=== PATIENT | female | born 1970 | race Caucasian/White ===

== ENCOUNTER 2016-11-17 20:57 | Emergency (ER) | payer MEDICAID, OTHER ==
[2016-11-17 21:31] VITALS: BP 151/82
--- NOTE | 2016-11-17 21:59 | UC ---
Complaint Female HPI - HPI Summary HPI Summary: pt c/o of dysuria, low back pain and "tenderness down there" with vaginal odor and "white stuff" discharge - History Of Current Complaint Chief Complaint: UCGU Stated Complaint: PERSONAL Time Seen by Provider: 11/17/16 21:37 Hx Obtained From: Patient Hx Last Menstrual Period: Hyst. ?: No Onset/Duration: Gradual Onset, Lasting Weeks Timing: Constant Severity Initially: Mild Severity Currently: Moderate Character: Burning Aggravating Factor(s): Urination Associated Signs And Symptoms: Positive: Back Pain, Vaginal Discharge - white - Allergies/Home Medications Allergies/Adverse Reactions: Allergies Allergy/AdvReac Type Severity Reaction Status Date / Time Metformin and Related Allergy Intermediate diarrhea/weight Verified 11/17/16 21: 26 loss Amoxicillin [From Augmentin] Allergy Swelling Verified 11/17/16 21:26 Of Face,Lips,& Throat Clavulanic Acid Allergy Swelling Verified 11/17/16 21:26 [From Augmentin] Of Face,Lips,& Throat Morphine Allergy Vomiting, Verified 11/17/16 21:26 Dizziness, Tongue Burning Sensation TIDE Allergy Intermediate Hives Uncoded 11/17/16 21:26 tuna fish Allergy Intermediate Swelling, Uncoded 11/17/16 21:26 Difficulty Breathing med for RA, hydro... Allergy Swelling Uncoded 11/17/16 21:26 PMH/Surg Hx/FS Hx/Imm Hx Previously Healthy: No - see pmh Endocrine History Of: Reports: Diabetes, Dyslipidemia Denies: Thyroid Disease, Hyperthyroidism, Hypothyroidism Cardiovascular History Of: Reports: Hypertension Denies: Cardiac Disorders, Pacemaker/ICD, Myocardial Infarction, Congestive Heart Failure, Atrial Fibrillation, Deep Vein Thrombosis, Bleeding Disorders Respiratory History Of: Reports: Asthma - She has not used inhaler for "a while. " Denies: COPD, Bronchitis, Pneumonia, Pulmonary Embolism GI/ History Of: Reports: Kidney Stones - She states that she was told that she has a kidney stone. Denies: Gastroesophageal Reflux, Ulcer, Gastrointestinal Bleed, Gall Bladder Disease, Diverticulitis, Renal Disease, Urosepsis Neurological History Of: Denies: TIA, CVA, Dementia, Seizures, Migraine Psychological History Of: Denies: Anxiety, Depression, Bipolar Disorder, Schizophrenia, Post Traumatic Stress Disorder Cancer History Of: Denies: Lung Cancer, Colorectal Cancer, Breast Cancer, Prostate Cancer, Cervical Cancer Other History Of: Negative For: HIV, Hepatitis B, Hepatitis C, Anticoagulant Therapy - Surgical History Surgical History: Yes Surgery Procedure, Year, and Place: Cholecystectomy, 1994, [facility]. Hysterectomy, 02/23/13, [facility] - Family History Known Family History: Positive: None, Cardiac Disease, Hypertension - Social History Lives: With Family Alcohol Use: None Substance Use Type: None Smoking Status (MU): Never Smoked Tobacco - Immunization History Most Recent Influenza Vaccination: Not the Season Review of Systems Constitutional: Negative Skin: Negative Eyes: Negative ENT: Negative Respiratory: Negative Cardiovascular: Negative Gastrointestinal: Negative Genitourinary: Dysuria, Hematuria, Frequency, Urgency Motor: Negative Neurovascular: Negative Musculoskeletal: Negative Neurological: Negative Psychological: Negative All Other Systems Reviewed And Are Negative: Yes Physical Exam Triage Information Reviewed: Yes Appearance: Well-Appearing Vital Signs: Initial Vital Signs Temp 98.9 F 11/17/16 21:22 Pulse 100 11/17/16 21:22 Resp 18 11/17/16 21:22 BP 151/82 11/17/16 21:22 Pulse Ox 100 11/17/16 21:22 Vital Signs Reviewed: Yes Neck exam: Normal Respiratory Exam: Normal Cardiovascular Exam: Normal Abdominal Exam: Other Abdomen Description: Positive: CVA Tenderness (R), CVA Tenderness (L) - has history of small kidney stone, pcp is follwoing Musculoskeletal Exam: Normal Neurological Exam: Normal Psychological Exam: Normal Skin Exam: Normal Complaint Female Dx - Course Course Of Treatment: It has been recommended that you seek further evaluation, testing and treatment at the local emergency department. You have declined this recommendation and indicate that you will follow up with your PCP regarding your diabetes. Additionally, you have indicated taht you will follow the protocol as given by your diabetes provider to cover your BG levels as tested here today. - Differential Dx/Diagnosis Differential Diagnosis/HQI/PQRI: Urinary Tract Infection, Other - vaginal yeast , hyperglycemia , ketoacidosis, Provider Diagnoses: hyperglycemia. vaginal yeast. dysuria Discharge - Discharge Plan Condition: Stable Disposition: HOME Prescriptions: Fluconazole 100 MG TAB* [Diflucan 100 MG TAB*] 100 mg PO DAILY #7 tab Phenazopyridine TAB* [Pyridium TAB*] 100 mg PO TID #6 tab Patient Education Materials: Vulvovaginal Candidiasis (ED), Dysuria (ED), Diabetic Hyperglycemia (ED) Referrals: Susannah Kee MD [Primary Care Provider] - Additional Instructions: It has been recommended that you seek further evaluation, testing and treatment at the local emergency department. You have declined this recommendation and indicate that you will follow up with your PCP regarding your diabetes. Additionally, you have indicated that you will follow the protocol as given by your diabetes provider to cover your BG levels as tested here today at home. .
[2016-11-17] MEDS ORDERED: Phenazopyridine TAB* 100 MG PO ONE ×2 (22:08)
[2016-11-17] MEDS ORDERED: Fluconazole 100 MG TAB* TAB PO ONE ×2 (22:08)
== END 2016-11-17 22:23 | disposition home or self-care (01) ==
LOC: UCCORT 20:57
DX: R30.0 Dysuria (principal); B37.3 Candidiasis of vulva and vagina; E11.65 Type 2 diabetes mellitus with hyperglycemia; Z87.442 Personal history of urinary calculi; Z90.49 Acquired absence of other specified parts of digestive tract; Z88.1 Allergy status to other antibiotic agents; Z88.6 Allergy status to analgesic agent; Z88.8 Allergy status to other drugs, medicaments and biological substances
CPT/HCPCS: 87480; 87510; 87660; 99212; A9270-GY; G0463

== ENCOUNTER 2017-06-02 07:04 | Emergency (ER) | payer MEDICAID ==
[2017-06-02 07:14] VITALS: BP 144/77
--- NOTE | 2017-06-02 07:29 | UC ---
Complaint Female HPI - HPI Summary HPI Summary: "I have a really bad yeast infection" c/o vaginal pain, itching, and "white" discharge x 4 days. States she gets yeast infections regularly. [ End ] - History Of Current Complaint Chief Complaint: UCGU Stated Complaint: URINARY COMPLAINT Time Seen by Provider: 06/02/17 07:20 Hx Obtained From: Patient Hx Last Menstrual Period: Hyst. ?: No Onset/Duration: Gradual Onset Severity Initially: Moderate Severity Currently: Moderate - Risk Factors Ectopic Risk Factor: Negative Ovarian Torsion Risk Factor: Negative - Allergies/Home Medications Allergies/Adverse Reactions: Allergies Allergy/AdvReac Type Severity Reaction Status Date / Time Metformin and Related Allergy Intermediate diarrhea/weight Verified 06/02/17 07: 14 loss Amoxicillin [From Augmentin] Allergy Swelling Verified 06/02/17 07:14 Of Face,Lips,& Throat Clavulanic Acid Allergy Swelling Verified 06/02/17 07:14 [From Augmentin] Of Face,Lips,& Throat Morphine Allergy Vomiting, Verified 06/02/17 07:14 Dizziness, Tongue Burning Sensation TIDE Allergy Intermediate Hives Uncoded 06/02/17 07:14 tuna fish Allergy Intermediate Swelling, Uncoded 06/02/17 07:14 Difficulty Breathing med for RA, hydro... Allergy Swelling Uncoded 06/02/17 07:14 PMH/Surg Hx/FS Hx/Imm Hx Previously Healthy: Yes Endocrine History: Diabetes, Dyslipidemia Cardiovascular History: Hypertension Other History Of: Negative For: HIV, Hepatitis B, Hepatitis C, Anticoagulant Therapy - Surgical History Surgical History: Yes Surgery Procedure, Year, and Place: Cholecystectomy, 1994, [facility]. Hysterectomy, 02/23/13, [facility] - Family History Known Family History: Positive: None, Cardiac Disease, Hypertension - Social History Occupation: Employed Full-time Lives: With Family Alcohol Use: None Substance Use Type: None Smoking Status (MU): Never Smoked Tobacco - Immunization History Most Recent Influenza Vaccination: Not the 2016/2016 Season Review of Systems Constitutional: Negative Skin: Negative Eyes: Negative ENT: Negative Respiratory: Negative Cardiovascular: Negative Gastrointestinal: Negative Genitourinary: Negative, Other - yeast infection Motor: Negative Neurovascular: Negative Musculoskeletal: Negative Neurological: Negative Psychological: Negative All Other Systems Reviewed And Are Negative: Yes Physical Exam Triage Information Reviewed: Yes Appearance: Well-Appearing, No Pain Distress, Well-Nourished Vital Signs: Initial Vital Signs Temp 98 F 06/02/17 07:07 Pulse 102 06/02/17 07:07 Resp 16 06/02/17 07:07 BP 144/77 06/02/17 07:07 Pulse Ox 99 06/02/17 07:07 Vital Signs Reviewed: Yes Eye Exam: Normal ENT Exam: Normal Dental Exam: Normal Neck exam: Normal Neck: Positive: 1 Respiratory Exam: Normal Cardiovascular Exam: Normal Abdominal Exam: Normal Musculoskeletal Exam: Normal Neurological Exam: Normal Psychological Exam: Normal Skin Exam: Normal Complaint Female Dx - Course Course Of Treatment: Patient has had previously yeast infections and states it feels identical . She denies new sexual partners or STI concern. Treat at this time and if not improved she is aware to seek medical attn for pelvic exam and cultures as she declined pelvic at this time. - Differential Dx/Diagnosis Provider Diagnoses: Vaginal candidiasis Discharge - Discharge Plan Condition: Good Disposition: HOME Prescriptions: Fluconazole [Diflucan 150 MG (NF)] 150 mg PO ONCE #2 tab Phenazopyridine TAB* [Pyridium 100 mg TAB*] 100 mg PO TID #6 tab Patient Education Materials: Vulvovaginal Candidiasis (ED) Referrals: Susannah Kee MD [Primary Care Provider] - 3 Days
== END 2017-06-02 07:42 | disposition home or self-care (01) ==
LOC: UCCORT 07:04
DX: B37.3 Candidiasis of vulva and vagina (principal); E11.9 Type 2 diabetes mellitus without complications; E78.5 Hyperlipidemia, unspecified; I10 Essential (primary) hypertension; Z90.49 Acquired absence of other specified parts of digestive tract; Z90.710 Acquired absence of both cervix and uterus; Z88.5 Allergy status to narcotic agent; Z88.1 Allergy status to other antibiotic agents
CPT/HCPCS: 81003; 99212; G0463

== ENCOUNTER 2017-09-21 19:00 | Emergency (ER) | payer OTHER ==
--- NOTE | 2017-09-21 19:02 | UC ---
UC General HPI - HPI Summary HPI Summary: 47 year old female presents with complains of blood sugar undetectable on the meter. I will send her to the ER. - History of Current Complaint Stated Complaint: HIGH BLOOD SUGAR, SKIN COMPLAINT Time Seen by Provider: 09/21/17 19:01 Hx Obtained From: Patient Hx Last Menstrual Period: Hyst. Onset/Duration: Lasting Days Onset Severity: Moderate Current Severity: Moderate - Allergy/Home Medications Allergies/Adverse Reactions: Allergies Allergy/AdvReac Type Severity Reaction Status Date / Time Metformin and Related Allergy Intermediate diarrhea/weight Verified 09/21/17 19: 08 loss Amoxicillin [From Augmentin] Allergy Swelling Verified 09/21/17 19:08 Of Face,Lips,& Throat Clavulanic Acid Allergy Swelling Verified 09/21/17 19:08 [From Augmentin] Of Face,Lips,& Throat Morphine Allergy Vomiting, Verified 09/21/17 19:08 Dizziness, Tongue Burning Sensation TIDE Allergy Intermediate Hives Uncoded 09/21/17 19:08 tuna fish Allergy Intermediate Swelling, Uncoded 09/21/17 19:08 Difficulty Breathing med for RA, hydro... Allergy Swelling Uncoded 09/21/17 19:08 PMH/Surg Hx/FS Hx/Imm Hx Other History Of: Negative For: HIV, Hepatitis B, Hepatitis C, Anticoagulant Therapy - Surgical History Surgical History: Yes Surgery Procedure, Year, and Place: Cholecystectomy, 1994, [facility]. Hysterectomy, 02/23/13, [facility] - Family History Known Family History: Positive: None, Cardiac Disease, Hypertension - Social History Alcohol Use: None Substance Use Type: None Smoking Status (MU): Never Smoked Tobacco - Immunization History Most Recent Influenza Vaccination: Not the 2015/2016 Season Review of Systems Constitutional: Chills, Fatigue Skin: Negative Eyes: Negative ENT: Negative Respiratory: Negative Cardiovascular: Negative Gastrointestinal: Negative Genitourinary: Negative Motor: Negative Neurovascular: Negative Musculoskeletal: Negative Neurological: Negative Psychological: Negative All Other Systems Reviewed And Are Negative: Yes Physical Exam Triage Information Reviewed: Yes Vital Signs Reviewed: Yes Eye Exam: Normal ENT Exam: Normal ENT: Positive: Pharyngeal erythema, Nasal congestion, Nasal drainage, Sinus tenderness Dental Exam: Normal Neck exam: Normal Neck: Positive: 1 Respiratory Exam: Normal Respiratory: Positive: Rhonchi, Wheezing Cardiovascular: Positive: Tachycardia Abdominal Exam: Normal Musculoskeletal Exam: Normal Neurological Exam: Normal Psychological Exam: Normal Skin Exam: Normal Course/Dx - Differential Dx - Multi-Symptom Provider Diagnoses: HYPERGLYCEMIA Discharge - Discharge Plan Condition: Guarded Disposition: TRANS HIGHER LVL OF CARE FAC Referrals: IVÁN Berg [Primary Care Provider] -
[2017-09-21] MEDS ORDERED: NS 0.9% 1000 ML* 1,000 ML IV ONE (19:04)
[2017-09-21 19:08] VITALS: BP 150/82
== END 2017-09-21 19:29 | disposition short-term general hospital (02) ==
LOC: UCCORT 19:00
DX: E72.51 Non-ketotic hyperglycinemia (principal)
CPT/HCPCS: 99213; G0463

== ENCOUNTER 2018-02-03 20:29 | Emergency (ER) | payer OTHER ==
[2018-02-03 21:16] VITALS: BP 139/69
--- NOTE | 2018-02-03 22:01 | UC ---
Dental HPI - HPI Summary HPI Summary: Pt presents with dental pain s/p having full mouth teeth extraction on 01/31/18. Pt spoke extensively of how she was only given ibuprofen for pain management and an antibiotic. Pt states she is a type 1 diabetic and was told by [facility] provider to stop taking all NSAIDS. Pt states she is in excruciating pain and was told to stop taking all NSAIDS. - History of Current Complaint Chief Complaint: UCDentalProblem Stated Complaint: MOUTH COMPLAINT Time Seen by Provider: 02/03/18 21:38 Hx Obtained From: Patient Hx Last Menstrual Period: Hyst. ?: No Onset/Duration: Sudden Onset - s/p teeth extraction Severity: Severe Pain Intensity: 8 Aggravating Factor(s): Chewing Related History: Previous Dental Care on Same Tooth - Allergies/Home Medications Allergies/Adverse Reactions: Allergies Allergy/AdvReac Type Severity Reaction Status Date / Time amoxicillin Allergy Swelling Verified 02/03/18 21:05 Of Face,Lips,& Throat clavulanic acid Allergy Swelling Verified 02/03/18 21:05 [From Augmentin] Of Face,Lips,& Throat metformin Allergy Vomiting, Verified 02/03/18 21:05 dizziness morphine Allergy VOMITING, Verified 02/03/18 21:05 DIZZINESS TIDE Allergy Intermediate Hives Uncoded 02/03/18 21:05 tuna fish Allergy Intermediate Swelling, Uncoded 02/03/18 21:05 Difficulty Breathing med for RA, hydro... Allergy Swelling Uncoded 02/03/18 21:05 Home Medications: Home Medications Cephalexin CAP* [Keflex 500 CAP*] 500 mg PO TID 02/03/18 [History Confirmed ] Ibuprofen TAB* [Advil TAB*] 400 mg PO Q6H PRN 02/03/18 [History Confirmed ] Orajel 1 udc PO QID 02/03/18 [History] PMH/Surg Hx/FS Hx/Imm Hx Previously Healthy: No Endocrine History: Diabetes Cardiovascular History: Cardiac Disease Other History Of: Negative For: HIV, Hepatitis B, Hepatitis C, Anticoagulant Therapy - Surgical History Surgical History: Yes Surgery Procedure, Year, and Place: Cholecystectomy, 1994, [facility]. Hysterectomy, 02/23/13, [facility] - Family History Known Family History: Positive: None, Cardiac Disease, Hypertension - Social History Occupation: Employed Full-time Lives: With Family Alcohol Use: None Substance Use Type: None Smoking Status (MU): Never Smoked Tobacco Have You Smoked in the Last Year: No - Immunization History Most Recent Influenza Vaccination: Not the Season Review of Systems Constitutional: Negative Skin: Negative Eyes: Negative ENT: Dental Pain Respiratory: Negative Cardiovascular: Negative Gastrointestinal: Negative Genitourinary: Negative Motor: Negative Neurovascular: Negative Musculoskeletal: Negative Neurological: Negative Psychological: Negative Is Patient Immunocompromised?: No All Other Systems Reviewed And Are Negative: Yes Physical Exam Triage Information Reviewed: Yes Appearance: Pain Distress - tearful throughout exam Vital Signs: Initial Vital Signs Temp 99.7 F 02/03/18 21:10 Pulse 103 02/03/18 21:10 Resp 20 02/03/18 21:10 BP 139/69 02/03/18 21:10 Pulse Ox 100 02/03/18 21:10 Vital Signs Reviewed: Yes Eye Exam: Normal ENT Exam: Normal Dental Exam: Other - healing wounds at tooth extraction sites Neck exam: Normal Respiratory Exam: Normal Respiratory: Positive: No respiratory distress Musculoskeletal Exam: Normal Neurological Exam: Normal Psychological Exam: Normal Skin Exam: Normal Dental Complaint Course/Dx - Differential Dx/Diagnosis Differential Diagnosis/Dx: Odontogenic Pain, Post Extraction Pain Provider Diagnoses: Post extraction pain Discharge - Sign-Out/Discharge Documenting (check all that apply): Discharge - Discharge Plan Condition: Stable Disposition: HOME Prescriptions: Hydrocodone/Acetaminophen [Hydrocodone-Acetamin 5-325 mg] 1 each PO Q4H PRN #6 tablet MDD 6 PRN Reason: Pain Patient Education Materials: Acute Dental Trauma (ED) Referrals: IVÁN Berg [Primary Care Provider] - If Needed Additional Instructions: Please call your dental care provider as soon as possible for refill on the narcotic medication that he previously prescribed. We can provde a litmited amount narcotic medication at this visit but it is important that you follow up with your dental care provider for pain management. If you are unable to manage your pain with the medication provided please seek care at the closest emergency room. - Billing Disposition and Condition Condition: STABLE Disposition: HOME
== END 2018-02-03 22:12 | disposition home or self-care (01) ==
LOC: UCCORT 20:29
DX: G89.18 Other acute postprocedural pain (principal); K08.89 Other specified disorders of teeth and supporting structures; Z88.3 Allergy status to other anti-infective agents; Z88.5 Allergy status to narcotic agent; Z88.8 Allergy status to other drugs, medicaments and biological substances
CPT/HCPCS: 99212; G0463

== ENCOUNTER 2019-08-19 18:14 | Emergency (ER) | payer OTHER ==
[2019-08-19 18:33] VITALS: BP 162/81
--- NOTE | 2019-08-19 18:41 | UC ---
Throat Pain/Nasal Carlos A HPI - HPI Summary HPI Summary: 49-year-old female who has had a cough and cold symptoms since August 03, 2019. She states is morning she had a fever of 102 at home. She denies any shortness of breath. She states in the morning she does cough up some colored sputum but not during the day. - History of Current Complaint Chief Complaint: UCGeneralIllness Stated Complaint: SORE THROAT/EARS/HEADACHE Time Seen by Provider: 08/19/19 18:24 Hx Obtained From: Patient Hx Last Menstrual Period: Hyst. ?: No Onset/Duration: Gradual Onset Severity: Mild Pain Intensity: 5 Cough: Nonproductive Associated Signs & Symptoms: Positive: Negative - Allergies/Home Medications Allergies/Adverse Reactions: Allergies Allergy/AdvReac Type Severity Reaction Status Date / Time amoxicillin Allergy Swelling Verified 02/03/18 21:05 Of Face,Lips,& Throat clavulanic acid Allergy Swelling Verified 02/03/18 21:05 [From Augmentin] Of Face,Lips,& Throat metformin Allergy Vomiting, Verified 02/03/18 21:05 dizziness morphine Allergy VOMITING, Verified 02/03/18 21:05 DIZZINESS TIDE Allergy Intermediate Hives Uncoded 02/03/18 21:05 tuna fish Allergy Intermediate Swelling, Uncoded 02/03/18 21:05 Difficulty Breathing med for RA, hydro... Allergy Swelling Uncoded 02/03/18 21:05 Home Medications: Home Medications Acetaminophen [Tylenol] 975 mg PO Q4HR PRN 08/19/19 [History Confirmed 08/19/19] Cyclobenzaprine TAB* [Flexeril 10 MG TAB*] 10 mg PO DAILY 08/19/19 [History Confirmed 08/19/19] PMH/Surg Hx/FS Hx/Imm Hx Previously Healthy: Yes Endocrine History: Diabetes Cardiovascular History: Hypertension Other History Of: Negative For: HIV, Hepatitis B, Hepatitis C, Anticoagulant Therapy - Surgical History Surgical History: Yes Surgery Procedure, Year, and Place: Cholecystectomy, 1994, [facility]. Hysterectomy, 02/23/13, [facility] - Family History Known Family History: Positive: None, Cardiac Disease, Hypertension - Social History Alcohol Use: None Substance Use Type: None Smoking Status (MU): Never Smoked Tobacco Have You Smoked in the Last Year: No - Immunization History Most Recent Influenza Vaccination: Not the 2016/2016 Season Review of Systems All Other Systems Reviewed And Are Negative: Yes ENT: Positive: Sore Throat Respiratory: Positive: Cough - Dry nonproductive cough. Is Patient Immunocompromised?: No Physical Exam Triage Information Reviewed: Yes Appearance: Well-Appearing, No Pain Distress, Well-Nourished Vital Signs: Initial Vital Signs Temp 99.4 F 08/19/19 18:23 Pulse 88 08/19/19 18:23 Resp 18 08/19/19 18:23 BP 162/81 08/19/19 18:23 Pulse Ox 100 08/19/19 18:23 Vital Signs Reviewed: Yes Eyes: Positive: Conjunctiva Clear ENT: Positive: Hearing grossly normal, Pharynx normal, TMs normal, Uvula midline Neck: Positive: Supple, Nontender, No Lymphadenopathy Respiratory: Positive: Lungs clear, Normal breath sounds, No respiratory distress, No accessory muscle use Cardiovascular: Positive: RRR, No Murmur, Pulses Normal, Brisk Capillary Refill Musculoskeletal Exam: Normal Neurological Exam: Normal Psychological Exam: Normal Skin Exam: Normal Throat Pain/Nasal Course/Dx - Course Course Of Treatment: Chest x-ray: Negative as read by myself and Dr. Low. Patient can increase fluids, continue use of her albuterol inhaler as directed and follow-up with her primary care provider as needed. - Differential Dx/Diagnosis Provider Diagnosis: URI (upper respiratory infection) Discharge ED - Sign-Out/Discharge Documenting (check all that apply): Patient Departure All imaging exams completed and their final reports reviewed: No - Discharge Plan Condition: Good Disposition: HOME Patient Education Materials: Upper Respiratory Infection (DC) Referrals: Maureen Ennis MD [Primary Care Provider] - Additional Instructions: Increase fluids, continue using your albuterol inhaler 2 puffs every 4-6 hours as needed. Definite follow-up with your primary care provider in 4 or 5 days if no improvement. - Billing Disposition and Condition Condition: GOOD Disposition: Home
--- NOTE | 2019-08-20 09:46 | UC ---
- Progress Note Progress Note: Patient Name: ZORAN SALOMON Medical Record#: [id number] Ordering Physician: Amy Leon NP Acct.#: [id number] : 1970 Age: 49 Sex: F [place] [facility] [place]: 08/19/191837 ADM Status: DEP ER Order Information: CHEST PA & LAT 2 VWS Accession Number: [id number] CPT: 92722 INDICATION: Cough. COMPARISON: Comparison is made to prior study from February 22, 2014. TECHNIQUE: Dual-energy PA and lateral views of the chest were obtained. FINDINGS: The heart is within normal limits in size. Mediastinal and hilar contours appear within normal limits. The lungs are clear. No pleural effusion is seen. IMPRESSION: NO EVIDENCE FOR ACTIVE CARDIOPULMONARY DISEASE. R0 Preliminary Imaging Read R0 <Electronically signed by Raimundo Brown MD in OV> 08/20/19 07 Dictated By: Raimundo Brown MD Dictated Date/Time: 08/20/19657 Transcribed Date/Time: 08/20/19657 Copy to: CC:Maureen Ennis MD; Amy Leon NP; Sergei Low MD Imaging - [facility] Imaging [facility] [address] [address] ph [phone] ph ([phone]) ph ([phone]) This report is only to be considered final once signed by the Provider(s) as displayed in the "<Electronically Signed by >" field (s). Absence of a signature indicates the report is in a draft status and still needs to be finalized. In the event this document was created by someone other than the signing Provider, the individual initiating the document will be listed in the "Entered by:" or "Dictated by:" cha. 1 of 1 Course/Dx - Diagnoses Provider Diagnoses: URI (upper respiratory infection) Discharge ED - Sign-Out/Discharge Documenting (check all that apply): Post-Discharge Follow Up All imaging exams completed and their final reports reviewed: Yes - Discharge Plan Condition: Good Disposition: HOME Patient Education Materials: Upper Respiratory Infection (DC) Referrals: Maureen Ennis MD [Primary Care Provider] - Additional Instructions: Increase fluids, continue using your albuterol inhaler 2 puffs every 4-6 hours as needed. Definite follow-up with your primary care provider in 4 or 5 days if no improvement. - Billing Disposition and Condition Condition: GOOD Disposition: Home
== END 2019-08-19 18:56 | disposition home or self-care (01) ==
LOC: UCCORT 18:14
DX: J06.9 Acute upper respiratory infection, unspecified (principal); E11.9 Type 2 diabetes mellitus without complications; I10 Essential (primary) hypertension; Z88.1 Allergy status to other antibiotic agents; Z88.8 Allergy status to other drugs, medicaments and biological substances; Z88.0 Allergy status to penicillin; Z88.5 Allergy status to narcotic agent; Z91.013 Allergy to seafood; Z91.09 Other allergy status, other than to drugs and biological substances
CPT/HCPCS: 71046; 99212; G0463